=== PATIENT | female | born 1995 | race Caucasian/White ===

== ENCOUNTER 2017-03-03 22:53 | Emergency (ER) | payer MEDICAID, OTHER ==
[2017-03-03 22:53] VITALS: BMI 30.4
[2017-03-03 23:03] VITALS: BP 129/81; PULSE 64; RESP 16; TEMP 98.4; O2SAT 97
--- NOTE | 2017-03-04 00:54 | C.PDOC ---
History Of Present Illness 21 y/o female presents to the ER c/o itching, burning rash with red bumps to the cheeks and forehead that began earlier today. Patient reports the rash spread to her arms. Patient took Benadryl with some relief. Denies swelling to the lips, tongue, or throat, use of any new topical substances or foods, or any other complaints. Time Seen by Provider: 03/03/17 23:27 Chief Complaint (Nursing): Allergic Reaction History Per: Patient History/Exam Limitations: no limitations Onset/Duration Of Symptoms: Hrs Current Symptoms Are (Timing): Still Present Home/EMS Treatment: Benadryl Severity: Mild Recent travel outside of the [place]: No Additional History Per: Patient Past Medical History Reviewed: Historical Data, Nursing Documentation, Vital Signs Vital Signs: Last Vital Signs Temp 98.4 F 03/03/17 22:59 Pulse 64 03/03/17 22:59 Resp 16 03/03/17 22:59 BP 129/81 03/03/17 22:59 Pulse Ox 97 03/05/17 10:10 - Medical History PMH: Gall Bladder Disease (gallstones), Hypothyroidism Surgical History: Cholecystectomy (08/2014) - [facility] Procedures INTRAOPER CHOLANGIOGRAM (09/07/14) LAPAROSCOPIC CHOLECYSTECTOMY (09/07/14) PACKED CELL TRANSFUSION (09/07/14) PLATELET TRANSFUSION (09/07/14) Family History: States: Unknown Family Hx - Social History Hx Tobacco Use: No Hx Alcohol Use: No Hx Substance Use: No - Immunization History Hx Tetanus Toxoid Vaccination: No Hx Influenza Vaccination: No Hx Pneumococcal Vaccination: No Review Of Systems ENT: Negative for: Mouth Swelling, Throat Pain, Throat Swelling Cardiovascular: Negative for: Chest Pain Respiratory: Negative for: Cough, Shortness of Breath Skin: Positive for: Rash Physical Exam - Physical Exam Appears: Non-toxic, No Acute Distress Skin: Warm, Dry, Rash (Fine papular rash to the cheeks and forehead. Fine papular rash to the arms) Head: Atraumatic, Normacephalic Oral Mucosa: Moist Tongue: No Swelling Lips: No Swelling Throat: Normal, No Erythema Cardiovascular: Rhythm Regular Respiratory: Normal Breath Sounds, No Rales, No Rhonchi, No Wheezing Neurological/Psych: Oriented x3, Normal Speech, Normal Cognition ED Course And Treatment O2 Sat by Pulse Oximetry: 97 (RA) Pulse Ox Interpretation: Normal Medical Decision Making Medical Decision Making: Impression: 21 y/o female c/o itching, burning rash with red bumps to the cheeks and forehead that began earlier today. Plans: * Benadryl * Pepcin Patient is in no acute distress and is improving with the papular rash. Patient was instructed to follow up with PMD for further evaluation and to return to the ER if symptoms worsens. Disposition Counseled Patient/Family Regarding: Diagnosis, Need For Followup, Rx Given - Disposition Referrals: [facility] [Outside] [facility] [Outside] Disposition: HOME/ ROUTINE Disposition Time: 00:52 Condition: STABLE Additional Instructions: Take Benadryl as prescribed. Follow up in medical clinic. Return to ER for any worse symptoms, swelling to lips, tongue or mouth, trouble breathing or swallowing. Prescriptions: DiphenhydrAMINE [Benadryl] 25 mg PO Q6 #25 cap Forms: General Discharge Instructions, [facility] (Nepali) - Clinical Impression Clinical Impression: Allergic urticaria - Scribe Statement The provider has reviewed the documentation as recorded by the Scribe Berenice rivers All medical record entries made by the Scribe were at my direction and personally dictated by me. I have reviewed the chart and agree that the record accurately reflects my personal performance of the history, physical exam, medical decision making, and the department course for this patient. I have also personally directed, reviewed, and agree with the discharge instructions and disposition.
== END 2017-03-04 00:56 | disposition home or self-care (01) ==
LOC: C.ER 22:53
DX: L50.0 Allergic urticaria (principal)

== ENCOUNTER 2017-07-31 00:18 | Emergency (ER) | payer MEDICAID ==
[2017-07-31 00:20] VITALS: BMI 30.4
--- NOTE | 2017-07-31 00:57 | C.PDOC ---
History Of Present Illness Patient presents to the ER with a complaint of SOB and wheezing. She reports she used her brothers inhaler at home with improvement. Patient reports she had a similar episode last winter. Patient is currently speaking in complete sentences, denies fever or chills. Time Seen by Provider: 07/31/17 00:56 Chief Complaint (Nursing): Shortness Of Breath History Per: Patient History/Exam Limitations: no limitations Onset/Duration Of Symptoms: Hrs Current Symptoms Are (Timing): Still Present Initiating Event: Other (Not known) Quality: Tightness Severity: Moderate Pain Scale Rating Of: 4 Associated Symptoms: Other (SOB, Wheezing). denies: Fever, Chills Recent travel outside of the [place]: No Past Medical History Reviewed: Historical Data, Nursing Documentation, Vital Signs Vital Signs: Last Vital Signs Temp 98.6 F 07/31/17 03:30 Pulse 81 07/31/17 03:30 Resp 18 07/31/17 03:30 BP 124/69 07/31/17 03:30 Pulse Ox 99 07/31/17 03:30 - Medical History PMH: Gall Bladder Disease (gallstones), Hypothyroidism Surgical History: Cholecystectomy (08/2014) - [facility] Procedures INTRAOPER CHOLANGIOGRAM (09/07/14) LAPAROSCOPIC CHOLECYSTECTOMY (09/07/14) PACKED CELL TRANSFUSION (09/07/14) PLATELET TRANSFUSION (09/07/14) Family History: States: No Known Family Hx - Social History Hx Tobacco Use: No Hx Alcohol Use: No Hx Substance Use: No - Immunization History Hx Tetanus Toxoid Vaccination: No Hx Influenza Vaccination: No Hx Pneumococcal Vaccination: No Review Of Systems Constitutional: Negative for: Fever, Chills Cardiovascular: Negative for: Chest Pain, Palpitations Respiratory: Positive for: Shortness of Breath, Wheezing Gastrointestinal: Negative for: Nausea, Vomiting, Abdominal Pain Physical Exam - Physical Exam Appears: Non-toxic Skin: Warm, Dry Head: Normacephalic Oral Mucosa: Moist Chest: Symmetrical, No Tenderness Cardiovascular: Rhythm Regular Respiratory: No Rales, No Rhonchi, Wheezing (Bilateral) Gastrointestinal/Abdominal: Soft, No Tenderness Neurological/Psych: Oriented x3 ED Course And Treatment O2 Sat by Pulse Oximetry: 98 (Room air) Pulse Ox Interpretation: Normal Progress Note: Albuterol nebulizer and prednisone administered. Reevaluation Time: 03:27 Reassessment Condition: Improved Disposition Counseled Patient/Family Regarding: Studies Performed, Diagnosis, Need For Followup, Rx Given - Disposition Referrals: Shannan Champion FNP [Primary Care Provider] - Disposition: HOME/ ROUTINE Disposition Time: 00:57 Condition: FAIR Additional Instructions: Please return if symptoms recur Prescriptions: Albuterol HFA [Ventolin HFA 90 mcg/actuation (8 g)] 2 puff IH [id number] 1 Days #1 puff Prednisone [Deltasone] 20 mg PO DAILY #5 tablet Instructions: Reactive Airways Disease (DC) Forms: [facility] (Gambian) - Clinical Impression Clinical Impression: Reactive airway disease - Scribe Statement The provider has reviewed the documentation as recorded by the Scribe Luaks Gold All medical record entries made by the Scribe were at my direction and personally dictated by me. I have reviewed the chart and agree that the record accurately reflects my personal performance of the history, physical exam, medical decision making, and the department course for this patient. I have also personally directed, reviewed, and agree with the discharge instructions and disposition.
[2017-07-31] MEDS: Albuterol-Ipratrop 3 mg / 0.5 (3 ml) UD IH SCH ×3 (01:16→01:36)
[2017-07-31 03:33] VITALS: BP 124/69; PULSE 81; RESP 18; TEMP 98.6
[2017-07-31 04:00] VITALS: O2SAT 98
== END 2017-07-31 03:32 | disposition home or self-care (01) ==
LOC: C.ER 00:18 → SUPCPDRO 00:18 → C.ER 03:32
DX: J45.909 Unspecified asthma, uncomplicated (principal)

== ENCOUNTER 2017-12-08 20:42 | Emergency (ER) | payer MEDICAID ==
[2017-12-08 20:43] VITALS: BMI 30.4
--- NOTE | 2017-12-08 21:26 | C.PDOC ---
History Of Present Illness 22 year old female presents to the ED for evaluation after having near-syncopal episodes earlier today. Patient states she was using the elliptical machine at the gym when she suddenly began feeling very dizzy, describing her symptoms as a spinning sensation. Patient began feeling nauseous and had one episode of vomiting. Patient also reports sudden pain in her left ear, which was very fleeting and states she was feeling very shaky. Patient then got off of the machine and laid down. She tried eating something, but symptoms worsened and she had another episode of vomiting. She then began feeling numbness to her hands, feet and around her mouth. Patient had two episodes of near-syncope and another episode of vomiting. Patient states symptoms lasted approximately 1 hour. Currently in the ED, patient states she no longer has dizziness and nausea , but still feels weak and shaky. Patient denies fever, chills, chest pain, palpitations. Patient states her LMP was on 11/30 and was normal. She denies previous history of similar symptoms. Time Seen by Provider: 12/08/17 21:04 Chief Complaint (Nursing): Syncope History Per: Patient History/Exam Limitations: no limitations Onset/Duration Of Symptoms: Hrs Current Symptoms Are (Timing): Better Activity At Onset Of Symptoms: Standing Seizure Or Post-ictal Symptoms: None Fall Associated With With Symptoms: No Additional History Per: Patient Past Medical History Reviewed: Historical Data, Nursing Documentation, Vital Signs Vital Signs: Last Vital Signs Temp 97.7 F 12/08/17 20:50 Pulse 62 12/08/17 20:50 Resp 16 12/08/17 20:50 BP 131/86 12/08/17 20:50 Pulse Ox 100 12/08/17 22:35 - Medical History PMH: Gall Bladder Disease (gallstones), Hypothyroidism Surgical History: Cholecystectomy (08/2014) - [facility] Procedures INTRAOPER CHOLANGIOGRAM (09/07/14) LAPAROSCOPIC CHOLECYSTECTOMY (09/07/14) PACKED CELL TRANSFUSION (09/07/14) PLATELET TRANSFUSION (09/07/14) Family History: States: Unknown Family Hx - Social History Hx Tobacco Use: No Hx Alcohol Use: No Hx Substance Use: No - Immunization History Hx Tetanus Toxoid Vaccination: No Hx Influenza Vaccination: No Hx Pneumococcal Vaccination: No Review Of Systems Constitutional: Positive for: Weakness. Negative for: Fever, Chills Cardiovascular: Negative for: Chest Pain, Palpitations Gastrointestinal: Positive for: Nausea, Vomiting Neurological: Positive for: Dizziness Physical Exam - Physical Exam Appears: Non-toxic, No Acute Distress Skin: Normal Color, Warm, Dry Head: Atraumatic, Normacephalic Eye(s): bilateral: Normal Inspection Ear(s): Bilateral: Normal Oral Mucosa: Moist Neck: Supple Chest: Symmetrical, No Deformity, No Tenderness Cardiovascular: Rhythm Regular, No Murmur Respiratory: Normal Breath Sounds, No Rales, No Rhonchi, No Wheezing Gastrointestinal/Abdominal: Soft, No Tenderness, No Guarding, No Rebound Extremity: Normal ROM, Capillary Refill (less than 2 seconds ) Neurological/Psych: Oriented x3, Normal Speech, Normal Cognition Gait: Steady ED Course And Treatment - Laboratory Results Result Diagrams: 12/08/17 21:50 12/08/17 21:50 Lab Interpretation: No Acute Changes O2 Sat by Pulse Oximetry: 100 (on RA ) Pulse Ox Interpretation: Normal - CT Scan/US CT head Other Rad Studies (CT/US): Read By Radiologist, Radiology Report Reviewed CT/US Interpretation: EXAM: CT Head Without Intravenous Contrast. EXAM DATE/ TIME: 12/08/2017 9:09 PM. CLINICAL HISTORY: 22 years old, female; Signs and symptoms; Dizziness; Additional info: Vertigo. TECHNIQUE: Axial computed tomography images of the head/brain without intravenous contrast. All CT scans at. this facility use one or more dose reduction techniques, viz.: automated exposure control; ma/kV. adjustment per patient size (including targeted exams where dose is matched to indication; i.e. head);. or iterative reconstruction technique. Coronal and sagittal reformatted images were created and reviewed. COMPARISON: No relevant prior studies available. FINDINGS: No intracranial hemorrhage. No intracranial edema. No evidence of infarct. The sinuses and mastoid air cells are clear. IMPRESSION: No acute findings. Progress Note: Bloodwork, urinalysis, CT Head and EKG ordered and reviewed. Reevaluation Time: 22:36 Reassessment Condition: Improved Disposition Counseled Patient/Family Regarding: Studies Performed, Diagnosis, Need For Followup, Rx Given - Disposition Referrals: [facility] [Outside] Disposition Time: 22:37 Condition: STABLE Prescriptions: Meclizine [Meclizine*] 25 mg PO Q6 PRN #20 tab PRN Reason: Dizziness Instructions: Vertigo (a Type of Dizziness) Forms: [facility] (Urdu) - Clinical Impression Clinical Impression: Vertigo - Scribe Statement The provider has reviewed the documentation as recorded by the Scribe (Monse Stein) Provider Attestation: All medical record entries made by the Scribe were at my direction and personally dictated by me. I have reviewed the chart and agree that the record accurately reflects my personal performance of the history, physical exam, medical decision making, and the department course for this patient. I have also personally directed, reviewed, and agree with the discharge instructions and disposition.
[2017-12-08 21:54] LABS: BASO % 0.4 % (0.0-2.0); EOS % 0.1 % (0.0-4.0); HEMOGLOBIN 13.3 g/dL (11.0-16.0); LYMPH # 1.2 K/uL (1.0-4.3); LYMPH % 10.2 % (20.0-40.0); MEAN CELL VOLUME 93.9 fL (81.0-99.0); MEAN PLATELET VOLUME 8.8 fL (7.2-11.7); MONO # 0.5 K/uL (0.0-0.8); MONO % 4.2 % (0.0-10.0); NEUT # 10.1 K/uL (1.8-7.0); NEUT % 85.1 % (50.0-75.0); RBC 4.16 Mil/uL (3.80-5.20); RED CELL DISTRIBUTION WIDTH 13.3 % (11.5-14.5); WHITE BLOOD COUNT 11.9 K/uL (4.8-10.8)
[2017-12-08 22:13] LABS: ALB/GLOB RATIO 1.3 (1.0-2.1); ALBUMIN 4.5 g/dL (3.5-5.0); ALT/SGPT 19 U/L (9-52); AST/SGOT 29 U/L (14-36); BLOOD UREA NITROGEN 15 mg/dL (7-17); CALCIUM 9.5 mg/dl (8.6-10.4); GFR AFRICAN-AMERICAN > 60; GFR NON-AFRICAN AMERICAN > 60
--- NOTE | 2017-12-08 22:27 | CT ---
EXAM: CT Head Without Intravenous Contrast EXAM DATE/TIME: 12/08/2017 9:09 PM CLINICAL HISTORY: 22 years old, female; Signs and symptoms; Dizziness; Additional info: Vertigo TECHNIQUE: Axial computed tomography images of the head/brain without intravenous contrast. All CT scans at this facility use one or more dose reduction techniques, viz.: automated exposure control; ma/kV adjustment per patient size (including targeted exams where dose is matched to indication; i.e. head); or iterative reconstruction technique. Coronal and sagittal reformatted images were created and reviewed. COMPARISON: No relevant prior studies available. FINDINGS: No intracranial hemorrhage. No intracranial edema. No evidence of infarct. The sinuses and mastoid air cells are clear. IMPRESSION: No acute findings.
[2017-12-08 22:48] VITALS: BP 110/80; PULSE 70; RESP 14; TEMP 97.8; O2SAT 99
== END 2017-12-08 22:47 | disposition home or self-care (01) ==
LOC: C.ER 20:42
DX: R42 Dizziness and giddiness (principal)

== ENCOUNTER 2018-09-24 20:40 | Emergency (ER) | payer MEDICAID ==
[2018-09-24 20:40] VITALS: BMI 30.4
[2018-09-24 20:57] VITALS: BP 114/79; PULSE 72; RESP 16; TEMP 97.9; O2SAT 100
--- NOTE | 2018-09-24 21:02 | C.PDOC ---
Time Seen by Provider: 09/24/18 20:54 Chief Complaint (Nursing): Lower Extremity Problem/Injury Past Medical History - Medical History PMH: Gall Bladder Disease (gallstones), Hypothyroidism Surgical History: Cholecystectomy (08/2014) - [facility] Procedures INTRAOPER CHOLANGIOGRAM (09/07/14) LAPAROSCOPIC CHOLECYSTECTOMY (09/07/14) PACKED CELL TRANSFUSION (09/07/14) PLATELET TRANSFUSION (09/07/14) Family History: States: Unknown Family Hx - Social History Hx Tobacco Use: No Hx Alcohol Use: No Hx Substance Use: No - Immunization History Hx Tetanus Toxoid Vaccination: No Hx Influenza Vaccination: No Hx Pneumococcal Vaccination: No Disposition - Disposition
--- NOTE | 2018-09-24 21:38 | RAD ---
Left ankle three views HISTORY: Injury. Comparison: None available. Findings: No evidence of acute displaced fracture or dislocation. Ankle mortise maintained. Talar dome intact. Impression Negative acute. If pain persists, consider MRI.
--- NOTE | 2018-09-24 21:48 | C.PDOC ---
History Of Present Illness 23 y/o female comes in to ED complaining of left ankle pain after she missed the last step of the stairs and twisted her left ankle. Patient denies hitting her head. Denies LOC, dizziness, or any other injuries. Time Seen by Provider: 09/24/18 20:54 Chief Complaint (Nursing): Lower Extremity Problem/Injury History Per: Patient History/Exam Limitations: no limitations Onset/Duration Of Symptoms: Hrs Current Symptoms Are (Timing): Still Present Past Medical History Reviewed: Historical Data, Nursing Documentation, Vital Signs Vital Signs: Last Vital Signs Temp 97.9 F 09/24/18 20:55 Pulse 72 09/24/18 20:55 Resp 16 09/24/18 20:55 BP 114/79 09/24/18 20:55 Pulse Ox 100 09/24/18 20:55 - Medical History PMH: Gall Bladder Disease (gallstones), Hypothyroidism Surgical History: Cholecystectomy (08/2014) - [facility] Procedures INTRAOPER CHOLANGIOGRAM (09/07/14) LAPAROSCOPIC CHOLECYSTECTOMY (09/07/14) PACKED CELL TRANSFUSION (09/07/14) PLATELET TRANSFUSION (09/07/14) Family History: States: No Known Family Hx - Social History Hx Tobacco Use: No Hx Alcohol Use: No Hx Substance Use: No - Immunization History Hx Tetanus Toxoid Vaccination: No Hx Influenza Vaccination: No Hx Pneumococcal Vaccination: No Review Of Systems Constitutional: Negative for: Weakness Genitourinary: Negative for: Dysuria, Hematuria Musculoskeletal: Positive for: Other (Left ankle pain) Skin: Negative for: Rash Neurological: Negative for: Weakness, Numbness, Dizziness Physical Exam - Physical Exam Appears: Non-toxic, No Acute Distress Skin: Warm, Dry Head: Atraumatic, Normacephalic Nose: No Epistaxis, No Tenderness, Septal Hematoma Oral Mucosa: Moist Neck: Supple Extremity: Tenderness (in left malleolar area, swelling over left malleolus), Other (No tenderness of foot) Extremity: Bilateral: Normal Color And Temperature Pulses: Left Dorsalis Pedis: Normal, Right Dorsalis Pedis: Normal Neurological/Psych: Oriented x3, Normal Speech ED Course And Treatment O2 Sat by Pulse Oximetry: 100 (RA) Pulse Ox Interpretation: Normal Medical Decision Making Medical Decision Making: Plan: --Ankle XR --POC --Tylenol XR does not show a fracture. she will be given an air cast and crutches and treated for an ankle sprain. Disposition Counseled Patient/Family Regarding: Studies Performed, Diagnosis, Need For Followup - Disposition Referrals: Huang Su MD [Staff Provider] - Disposition: HOME/ ROUTINE Disposition Time: 21:50 Condition: STABLE Instructions: Ankle Sprain (DC) Forms: [facility] (Romanian), General Discharge Instructions - Clinical Impression Clinical Impression: Left ankle sprain - PA / MEDICAL RECORDS AUDITOR / Resident Statement MD/DO has reviewed & agrees with the documentation as recorded. - Scribe Statement The provider has reviewed the documentation as recorded by the Scribe Aura Kennedy All medical record entries made by the Neo were at my direction and personally dictated by me. I have reviewed the chart and agree that the record accurately reflects my personal performance of the history, physical exam, medical decision making, and the department course for this patient. I have also personally directed, reviewed, and agree with the discharge instructions and disposition.
== END 2018-09-24 22:27 | disposition home or self-care (01) ==
LOC: C.ER 20:40
DX: S93.402A Sprain of unspecified ligament of left ankle, initial encounter (principal); X50.1XXA Overexertion from prolonged static or awkward postures, initial encounter; E03.9 Hypothyroidism, unspecified

== ENCOUNTER 2018-10-12 22:13 | Emergency (ER) | payer SELFPAY ==
[2018-10-12 22:14] VITALS: BMI 30.4
[2018-10-12 22:37] VITALS: BP 131/93; PULSE 79; RESP 22; TEMP 98; O2SAT 99
--- NOTE | 2018-10-12 23:43 | C.PDOC ---
History Of Present Illness 23 year old female presents to the ED for evaluation of digitally and positionally reproducible pain to her upper chest region which began this morning. 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 Patient denies substernal chest pressure and shortness of breath at this time. Time Seen by Provider: 10/12/18 23:30 Chief Complaint (Nursing): Medical Clearance History Per: Patient History/Exam Limitations: no limitations Onset/Duration Of Symptoms: Hrs Current Symptoms Are (Timing): Still Present Past Medical History Reviewed: Historical Data, Nursing Documentation, Vital Signs Vital Signs: Last Vital Signs Temp 98 F 10/12/18 22:32 Pulse 79 10/12/18 22:32 Resp 22 10/12/18 22:32 BP 131/93 H 10/12/18 22:32 Pulse Ox 99 10/12/18 22:32 - Medical History PMH: Gall Bladder Disease (gallstones), Hypothyroidism Surgical History: Cholecystectomy (08/2014) - [facility] Procedures INTRAOPER CHOLANGIOGRAM (09/07/14) LAPAROSCOPIC CHOLECYSTECTOMY (09/07/14) PACKED CELL TRANSFUSION (09/07/14) PLATELET TRANSFUSION (09/07/14) Family History: States: Unknown Family Hx - Social History Hx Tobacco Use: No Hx Alcohol Use: No Hx Substance Use: No - Immunization History Hx Tetanus Toxoid Vaccination: No Hx Influenza Vaccination: No Hx Pneumococcal Vaccination: No Review Of Systems Cardiovascular: Positive for: Chest Pain (upper ) Respiratory: Negative for: Shortness of Breath Physical Exam - Physical Exam Appears: Non-toxic, No Acute Distress, Other (obese female, chaperoned by her mother ) Skin: Normal Color, Warm, Dry Head: Atraumatic, Normacephalic Oral Mucosa: Moist Neck: Supple Chest: Symmetrical, No Deformity, Tenderness (digitally and positionally reproduble, to chest wall (around T2-bilateral parasternal borders)) Cardiovascular: Rhythm Regular, No Murmur Respiratory: Normal Breath Sounds, No Rales, No Rhonchi, No Wheezing Extremity: Normal ROM, Capillary Refill (less than 2 seconds ) Neurological/Psych: Oriented x3, Normal Speech, Normal Cognition ED Course And Treatment ECG: Interpreted By Me ECG Rhythm: Sinus Rhythm ECG Interpretation: Normal Rate From EC O2 Sat by Pulse Oximetry: 99 (on RA) Pulse Ox Interpretation: Normal Progress Note: Motrin PO given. Medical Decision Making Medical Decision Making: anterior chest wall discomfort positionally and digitally reproducable ekg normal Disposition Doctor Will See Patient In The: Office Counseled Patient/Family Regarding: Studies Performed, Diagnosis - Disposition Referrals: [facility] [Outside] [facility] [Outside] [facility] [Outside] Disposition: HOME/ ROUTINE Disposition Time: 23:42 Condition: GOOD Additional Instructions: motrin/advil 400-600 mg every 6 hours as needed for chest wall discomfort normal EKG in ED Instructions: Costochondritis, Chest Pain That Is Not Caused by the Heart (DC) Forms: [facility] (Faroese) - Clinical Impression Clinical Impression: Chest wall discomfort - Scribe Statement The provider has reviewed the documentation as recorded by the Scribe (Monse Stein) Provider Attestation: All medical record entries made by the Scribe were at my direction and personally dictated by me. I have reviewed the chart and agree that the record accurately reflects my personal performance of the history, physical exam, medical decision making, and the department course for this patient. I have also personally directed, reviewed, and agree with the discharge instructions and disposition.
== END 2018-10-12 23:51 | disposition home or self-care (01) ==
LOC: C.ER 22:13
DX: R07.89 Other chest pain (principal); E03.9 Hypothyroidism, unspecified